=== PATIENT | male | born 1940 | race Caucasian/White ===

== ENCOUNTER 2018-07-19 10:05 | Emergency (ER) | payer OTHER ==
[~2018-07-19] VITALS: Ht 167.6 cm; Wt 92.5 kg
[~2018-07-19 10:05] MED LIST: FENOFIBRATE145 MG; FENOFIBRIC ACI135 MG PO; GLIPIZIDE ER10 MG PO; GLIPIZIDE5 MG/BOTT1; KETO10TA2 PO; LISINOPRIL20 MG; METFORMIN HCL1000 MG; METFORMIN HCL1000 MG PO; NEURONTIN300 MG PO; NORFLEX100MG PO; ZESTRIL20 MG PO
== END 2018-07-19 14:26 | disposition home or self-care (01) ==
LOC: ER 10:05
DX: B34.9 Viral infection, unspecified (principal); J11.1 Influenza due to unidentified influenza virus with other respiratory manifestations; R53.81 Other malaise; F41.8 Other specified anxiety disorders